=== PATIENT | female | born 1960 | race Caucasian/White ===

== ENCOUNTER 2019-03-05 10:31 | Day surgery (SDC) | payer OTHER ==
[2019-03-05] MEDS: SOD CHLORIDE 0.9% 1,000 ML IV (11:39)
[2019-03-05] MEDS: BUPIVACAINE 0.25% (MPF) 30 ML INJ (11:54)
[2019-03-05] MEDS: GENTAMICIN 80 MG INJ (11:54)
[2019-03-05] MEDS: BUPIVACAINE LIPOSOME/PF 266 MG/20 ML VIAL INFIL (11:55)
[2019-03-05] MEDS: POLYMYXIN/BACITRACIN 1L IRRIG (11:55)
[2019-03-05] MEDS ORDERED: LIDOCAINE 2% (SDV) 5 ML INJ (12:20)
[2019-03-05] MEDS ORDERED: PROPOFOL 20 ML (12:20)
[2019-03-05] MEDS ORDERED: MIDAZOLAM 1 MG/ML 2 ML INJ (12:20)
[2019-03-05] MEDS ORDERED: BUPIVACAINE 0.25%/EPI (SDV) 10 ML INJ (12:25)
[2019-03-05] MEDS ORDERED: FENTAnyl 50 MCG/ML VIAL (12:29)
[2019-03-05] MEDS ORDERED: CEFAZOLIN 1 GM INJ (12:30)
[2019-03-05] MEDS ORDERED: morphine 2 MG INJ IV (12:30)
[2019-03-05] MEDS ORDERED: DEXAMETHASONE 4 MG/ML 5 ML INJ (12:46)
[2019-03-05] MEDS ORDERED: FAMOTIDINE 20 MG INJ (12:46)
[2019-03-05] MEDS ORDERED: ONDANSETRON 4 MG INJ (12:46)
[2019-03-05] MEDS ORDERED: FENTAnyl 50 MCG/ML VIAL IV (13:00)
[2019-03-05] MEDS ORDERED: DIPHENHYDRAMINE 50 MG INJ IV (13:00)
[2019-03-05] MEDS ORDERED: HYDROmorphONE 1 MG/5 ML IV SYRINGE IV ×2 (13:00)
[2019-03-05] MEDS ORDERED: OXYCODONE/ACETAMINOPHEN (5/325) TAB PO (13:00)
[2019-03-05] MEDS ORDERED: PROCHLORPERAZINE 10 MG INJ IV (13:00)
[2019-03-05] MEDS ORDERED: HYDROmorphONE 2 MG/ML SYG (13:19)
[2019-03-05] MEDS ORDERED: POLYMYXIN B 500000 UNIT INJ (13:26)
[2019-03-05] MEDS: BACITRACIN 50000 UNITS INJ IRR (13:47)
[2019-03-05] MEDS: POLYMYXIN B 500000 UNIT INJ IRR (13:47)
[2019-03-05] MEDS: MEPERIDINE 25 MG INJ IV (15:39)
[2019-03-05] MEDS: ONDANSETRON 4 MG INJ IV ×2 (15:39→16:50)
[2019-03-05] MEDS: HYDROCODONE/APAP (5/325) TAB PO (16:40)
== END 2019-03-05 18:12 | disposition home or self-care (01) ==
LOC: SDS 10:31
DX: T85.43XA Leakage of breast prosthesis and implant, initial encounter (principal); Y83.2 Surgical operation with anastomosis, bypass or graft as the cause of abnormal reaction of the patient, or of later complication, without mention of misadventure at the time of the procedure
CPT/HCPCS: 19371